=== PATIENT | female | born 1965 | race Hispanic/Latino ===

== ENCOUNTER 2020-05-29 09:24 | Outpatient (CLI) | payer OTHER ==
--- NOTE | 2020-05-29 14:22 | Mammography Report ---
DIGITAL SCREENING MAMMOGRAM WITH CAD, 05/29/2020 CLINICAL INFORMATION / INDICATION: Routine screening mammography. TECHNIQUE: Digital bilateral 2D mammography was obtained in the craniocaudal and mediolateral obliqu e projections. This examination was interpreted with the benefit of Computer-Aided Detection analysis . COMPARISON: 05/21/2017 FINDINGS: Breast Density: There are scattered areas of fibroglandular density. No dominant mass, suspicious calcifications, or architectural distortion in either breast. No interval change. IMPRESSION: No mammographic evidence of malignancy. Follow up recommendation: Routine yearly BI-RADS Category 1: Negative. A "normal" or negative report should not discourage follow up or biopsy of a clinically significant f inding. A written summary of these findings will be mailed to the patient. The patient will be entered into a mammography reporting system which will generate a reminder letter for the patient's next appointmen t at the appropriate interval. The [employer] recommends yearly mammograms starting at age 40 and continuing as l erlinda as a woman is in good health. Breast MRI is recommended for women with an approximate 20-25% or greater lifetime risk of breast cancer, including women with a strong family history of breast or ova maggie cancer or who have been treated for Hodgkin's disease. Signer Name: Annabel Carl MD Signed: 05/29/2020 2:17 PM Workstation Name: [id number]
== END 2020-05-29 09:25 | disposition home or self-care (01) ==
LOC: SPVWC 09:24
PROVIDERS: ATTEND Surgery
DX: Z12.31 Encounter for screening mammogram for malignant neoplasm of breast (principal)
CPT/HCPCS: 77063; 77067

== ENCOUNTER 2020-11-06 09:33 | Outpatient (CLI) | payer OTHER ==
--- NOTE | 2020-11-06 11:44 | Magnetic Resonance Report ---
Bilateral breast MR without and with contrast. History: Screening breast MRI. Comparison: 05/29/2020. Technique: Multiplanar multisequence MR images of the breast were obtained before and after the intra venous administration of 15 ml of Clariscan. Post processing analysis and review was performed on a [employer] workstation. Findings: The breasts are composed of scattered fibroglandular breast tissue. There is moderate background pare nchymal enhancement which along with the presence of multiple scattered enhancing foci decreases the sensitivity of MRI. No discrete enhancing mass, dominant focus, or other abnormal enhancement is identified within either breast. A biopsy marker in the right upper outer breast is noted at site of reported benign biopsy. There are multiple scattered enhancing foci present throughout both breasts. These demonstrate low le lorenzo type I enhancement which is typically seen with benign etiologies. No abnormal axillary or internal mammary lymph nodes. Impression: No evidence of breast malignancy. Routine screening mammogram due in May 2021 is recommended, un less imaging is clinically indicated sooner. BIRADS 2: Benign A normal MRI does not exclude the presence of some forms of breast malignancy as literature reports s uggest that some forms of ductal carcinoma in situ or lobular carcinoma, particularly, may not be det ected on MRI. The sensitivity and specificity of MRI for cancers under 5 mm may be reduced. MRI does not replace the recommendation for annual conventional mammographic evaluation and should be used as an adjunct to mammography and physical examination as necessary. Signer Name: Chepe Rizzo MD Signed: 11/06/2020 11:39 AM Workstation Name: [id number]
== END 2020-11-06 09:34 | disposition home or self-care (01) ==
LOC: SPVIMAG 09:33
PROVIDERS: ATTEND Surgery
DX: N60.31 Fibrosclerosis of right breast (principal); N60.32 Fibrosclerosis of left breast; Z80.3 Family history of malignant neoplasm of breast
CPT/HCPCS: A9575; C8908; 77049